=== PATIENT | female | born 1990 | race Caucasian/White ===

== ENCOUNTER 2025-03-27 07:53 | Emergency (ER) | payer OTHER ==
[~2025-03-27] VITALS: Ht 149.9 cm; Wt 126.1 kg
[2025-03-27 08:01] VITALS: BP 158/73; TEMP 98.3
[2025-03-27] MEDS: LIDOCAINE 1% INJ 50 ML MDV IJ ONE (08:55)
[2025-03-27] MEDS ORDERED: LIDOCAINE 1% INJ 50 ML MDV IJ ONE (08:55)
[2025-03-27] MEDS ORDERED: CLIN300C12 PO (10:07)
[2025-03-27] MEDS ORDERED: HYDR-4303 PO (10:08)
[2025-03-27 10:23] VITALS: O2SAT 98
== END 2025-03-27 10:25 | disposition home or self-care (01) ==
LOC: ER 08:04
DX: L02.212 Cutaneous abscess of back [any part, except buttock and flank] (principal); Z88.1 Allergy status to other antibiotic agents
CPT/HCPCS: 99284; 10060; J3490; A6403; A6407